=== PATIENT | male | born 1990 | race Caucasian/White ===

== ENCOUNTER 2018-02-17 09:59 | Emergency (ER) | payer OTHER ==
[2018-02-17] MEDS: ONDANSETRON 4 MG INJ IV (10:38)
[2018-02-17] MEDS: SOD CHLORIDE 0.9% 1,000 ML IV (10:38)
[2018-02-17 10:49] LABS: ADD MAN DIFF? NO
[2018-02-17 10:56] LABS: ABNORMAL IP MESSAGE 1; BASOPHIL # 0.1 10^3/ul (0.0-0.1); BASOPHILS % 0.2 % (0.0-2.0); HEMATOCRIT 52.8 % (42.0-52.0); HEMOGLOBIN 18.3 g/dl (14.0-18.0); LYMPHOCYTES # 2.1 10^3/ul (0.8-2.9); LYMPHOCYTES % 8.8 % (15.0-51.0); MEAN CORPUSCULAR HEMOGLOBIN 28.5 pg (29.0-33.0); MEAN CORPUSCULAR HGB CONC 34.7 g/dl (32.0-37.0); MEAN CORPUSCULAR VOLUME 82.2 fl (82.0-101.0); MEAN PLATELET VOLUME 9.5 fl (7.4-10.4); MONOCYTE # 1.2 10^3/ul (0.3-0.9); MONOCYTES % 5.2 % (0.0-11.0); NEUTROPHIL # 20.3 10^3/ul (1.6-7.5); NEUTROPHILS % 85.4 % (39.0-77.0); PLATELET COUNT 367 10^3/UL (140-415); POSITIVE DIFF @See below; RED BLOOD COUNT 6.42 10^6/ul (4.70-6.10); RED CELL DISTRIBUTION WIDTH 13.8 % (11.5-14.5)
[2018-02-17 10:56] LABS: WHITE BLOOD COUNT 23.8 10^3/ul (4.8-10.8)
[2018-02-17 11:09] LABS: ANION GAP 19 (8-16); BLOOD UREA NITROGEN 20 mg/dl (7-20); CALCIUM 10.8 mg/dl (8.4-10.2); CARBON DIOXIDE 24 mmol/L (21-31); CHLORIDE 103 mmol/L (97-110); CREATININE 1.13 mg/dl (0.61-1.24); GLUCOSE 168 mg/dl (70-220); POTASSIUM 3.2 mmol/L (3.5-5.1); SODIUM 143 mmol/L (135-144)
[2018-02-17] MEDS: ACETAMINOPHEN 500 MG TAB PO (12:25)
[2018-02-17] MEDS: POTASSIUM CHLORIDE (SR) 20 MEQ TAB PO (12:35)
== END 2018-02-17 12:52 | disposition home or self-care (01) ==
LOC: E/R 09:59
DX: F11.23 Opioid dependence with withdrawal (principal); D72.829 Elevated white blood cell count, unspecified; E86.0 Dehydration; R19.7 Diarrhea, unspecified; Z87.891 Personal history of nicotine dependence
CPT/HCPCS: 36415; 80048; 85025; 96361; 96374; 99284-25